=== PATIENT | female | born 1995 | race Two or more races ===

== ENCOUNTER 2024-10-23 13:19 | Outpatient (AMB) | payer MEDICAID, SELFPAY ==
[2024-10-23 13:30] VITALS: BP 127/87; PULSE 84; RESP 18; TEMP 36; O2SAT 98
--- NOTE | 2024-10-23 13:30 | AMB.GYNCLNOT ---
Vital Signs 10/23/24 13:30 10/23/24 13:33 Weight 109.543 kg 241 kg Weight Measurement Method Standing Scale BP 127/87 H Blood Pressure Source Automatic Cuff Blood Pressure Location Left Upper Arm Position Sitting Respiration 18 Pulse 84 Pulse Source Monitor Temp 96.8 F Temp Source Oral Pulse Oximetry (%) 98 Oxygen Delivery Method Room Air Allergies/Home Meds Allergies & Medications Allergies No Known Allergies Allergy (Verified 10/23/24 13:30) Medication Reconciliation PNV #[id number] 650 mg-50 unit(AM)/30 mg-1 mg tablet,capsule 1 ea PO QDAY 02/26/24 [History Confirmed 10/23/24] Intake Visit Data Collection New Patient or Established: Established Patient (seen at [facility] within 3 years) Reason for Visit:: Seen by Clinical Staff ONLY (RN/MA): No Bankruptcy Paralegal Required: No Do You Feel Safe at Home: Yes Authorities Contacted: N/A PCP or OBGYN visit in last 3 months: Yes Hx Now: No Are you currently on any form of Control: No Pain Present Currently: No Pain Scale Used: Wells-Nolan/Numerical Pain scale:: 0 Smoking Status Smoking Status: Never smoker 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 1. Little interest or pleasure in doing things: not at all 2. Feeling down, depressed, or hopeless: not at all Total score: 0 PHQ-9 3. Trouble falling or staying asleep, or sleeping too much: Not at all 4. Feeling tired or having little energy: Not at all 5. Poor appetite or overeating: Not at all 6. Feeling bad about yourself - or that you are a failure or have let yourself or your family down: Not at all 7. Trouble concentrating on things, such as reading the newspaper or watching television: Not at all 8. Moving or speaking so slowly that other people could have noticed? - Or the opposite - being so fidgety or restless that you have been moving around a lot more than usual: not at all 9. Thoughts that you would be better off or of hurting yourself in some way: Not at all Total score: 0 If you checked off any problems, how difficult have these problems made it for you to do your work, take care of things at home, or get along with other people?: not difficult at all Source: Developed by Drs. Shaggy Tidwell, Lucia Neville, Cayetano Montalvo and colleagues, with an educational rené from [employer]. Depression screen completed yes Social History Living Situation History Lives With: Family Housing: House Tobacco History Smoking Status: Never smoker Second Hand Smoke Exposure: No Alcohol History Alcohol Intake: Former Alcohol Intake Frequency: holidays/special occasions only Domestic Abuse History Do You Feel Safe at Home: Yes Past Medical History Past Medical History Have you ever been diagnosed with any of the following: Neurological Problems Seizures: No Cardiology Problems Congestive Heart Failure: No Respiratory Problems Chronic Obstructive Pulmonary Disease (COPD): No Asthma: No Genital/Urinary Problems Renal Disease: No Endocrine Problems Diabetes Mellitus Type 1: No Diabetes Mellitus Type 2: Yes (Diabetes on father's side) Other Problems Blood Transfusions: No Anesthesia Reactions: No History of Present Illness HPI Narrative Chief Complaint visit, back pain, sharp stomach pains History of Present Illness Peace Tate presents for a visit following a repeat delivery on March 16, 2024. Her chief complaints are back pain and sharp stomach pains. She reports experiencing these symptoms but does not provide specific details about their onset, duration, or severity. The patient has not been monitoring her diabetes as prescribed. However, she has recently started taking Zepbound and reports losing nine pounds in two weeks. She has made lifestyle changes to improve her health, including reducing soda intake, increasing water consumption, walking regularly, and avoiding bread and tortillas. Ms. Tate expresses frustration with her weight and mentions social avoidance, indicating that her current health status is impacting her daily functioning and social interactions. She requests an ultrasound to investigate her symptoms, demonstrating concern about her recovery. Medical History - Diabetes mellitus Surgical History - Repeat delivery on 03-16-2024 Medications and Supplements - Zepbound - Started recently. Lost nine pounds in two weeks. Social History - Diet: Reduced soda intake, increased water consumption, avoids bread and tortillas - Exercise: Walks regularly - Psychosocial: Expresses frustration with weight and social avoidance Review of Systems General: Positive for weight loss. Gastrointestinal: Positive for sharp stomach pains. Musculoskeletal: Positive for back pain. Psychiatric: Positive for social avoidance, frustration with weight. Pain Assessment Are you having any pain?: No Weight: 241 kg Sexual Activity Sexual activity counseling done: Yes Resumed intercourse: Yes Dyspareunia: No Change in libido: No Emergency contraception: advised Bonding With Problem identified: No Problem identified: No Referral for counseling: No Feeding Feeding method: bottle Tobacco Smoking Status: Never smoker 2hr glucose: Yes Return of menses: Yes Review of Systems Review of Systems Systems Reviewed: All systems reviewed, normal except as documented Genitourinary Genitourinary: Denies change in libido Psychiatric Psychiatric: Denies change in libido Endocrine Endocrine: Denies change in libido Exam General Limitations: no limitations General Appearance: alert, in no apparent distress, comfortable, cooperative, healthy appearing, well developed and well groomed Head Head exam: atraumatic, normocephalic and normal inspection Neck Neck exam: Present normal inspection, full ROM and trachea midline Chest Chest inspection: Present normal inspection and symmetric chest wall rise Abdominal Abdominal exam: Present soft and normal bowel sounds Psych Psychiatric exam: Present normal affect and normal mood Skin Skin exam: Present warm, dry, intact and normal color Assessment & Plan Diagnosis / Problem List (1) Routine Follow-Up: (2) depression: Status: Acute Plan Peace Tate presents for a visit status post-repeat delivery on 03-16-2024, reporting back pain and sharp stomach pains. abdominal pain Assessment: Patient reports back pain and sharp stomach pains following repeat delivery on 03-16-2024. Given the timing and nature of symptoms, there is concern for potential complications such as hernia or blood clot. Further imaging is necessary for accurate diagnosis and appropriate management. Plan: - Order CT scan to evaluate for hernia or blood clot - Order X-ray - Schedule imaging at [facility] pending insurance authorization Diabetes mellitus Assessment: Patient has not been monitoring her diabetes. She has recently started Zepbound and reports a 9-pound weight loss in two weeks. Patient has made lifestyle modifications including reduced soda intake, increased water consumption, regular walking, and avoiding bread and tortillas. Plan: - Continue Zepbound (dose and frequency not specified) - Encourage continued lifestyle modifications: - Maintain reduced soda intake and increased water consumption - Continue regular walking - Maintain dietary changes (avoiding bread and tortillas) - Reinforce importance of blood glucose monitoring weight management Assessment: Patient expresses frustration with weight and reports social avoidance. She has lost 9 pounds in two weeks since starting Zepbound and implementing lifestyle changes. Plan: - Continue current weight management strategies - Provide supportive counseling regarding weight-related concerns and social avoidance leave extension Assessment: Patient requires extended leave, likely due to ongoing recovery and medical concerns. Plan: - Extend leave until December 08 Office Procedures OB Clinic LOC & Office Proc's Nursing/Assessment Patient Status: Established Patient OB Clinic Nursing Assessment: BP Monitoring, Medication Reconciliation, Update PMH in EMR and Vital Signs OB Clinic Coordination of Care: Complex Care and Chronic Disease 1-5, Consent,records obtained, informed consent, Education Simp Pt/Fam and Staff clarify orders Established Patient Charge Established Patient Point Assignment: 100 Established Patient Point Charge: EP Level 3 (80-115)
== END 2024-10-23 13:51 | disposition home or self-care (01) ==
LOC: HODSOBC 13:19
PROVIDERS: Supervising Provider Obstetrics & Gynecology; Visit Provider Obstetrics & Gynecology
DX: Z39.2 Encounter for routine postpartum follow-up (principal); O99.345 Other mental disorders complicating the puerperium; F53.0 Postpartum depression; E11.9 Type 2 diabetes mellitus without complications; O90.89 Other complications of the puerperium, not elsewhere classified; M54.9 Dorsalgia, unspecified; R10.9 Unspecified abdominal pain; Z91.199 Patient's noncompliance with other medical treatment and regimen due to unspecified reason
CPT/HCPCS: 99213; G0463

== ENCOUNTER 2025-01-23 11:08 | Outpatient (AMB) | payer MEDICAID, SELFPAY ==
[2025-01-23 11:22] VITALS: BP 117/87; PULSE 85; RESP 16; TEMP 36.2; O2SAT 98; BMI 42.0
--- NOTE | 2025-01-23 11:24 | AMB.GYNCLNOT ---
Vital Signs 01/23/25 11:22 01/23/25 11:26 Height 1.55 m Height Method Stated Weight 100.868 kg Weight Measurement Method Standing Scale BMI 42.0 BP 117/87 H 117/87 H Blood Pressure Source Automatic Cuff Blood Pressure Location Left Upper Arm Position Sitting Respiration 16 16 Pulse 85 85 Pulse Source Monitor Temp 97.1 F 97.1 F Temp Source Oral Pulse Oximetry (%) 98 98 Oxygen Delivery Method Room Air Allergies/Home Meds Allergies & Medications Allergies No Known Allergies Allergy (Verified 01/23/25 11:24) Medication Reconciliation PNV [id number] 7 650 mg-50 unit(AM)/30 mg-1 mg tablet,capsule 1 ea PO QDAY 02/26/24 [History Confirmed 01/23/25] sulfamethoxazole 800 mg-trimethoprim 160 mg tablet (Bactrim DS) 1 tab PO BID 7 days #14 tabs 01/23/25 [Rx] Intake Visit Data Collection New Patient or Established: Established Patient (seen at [facility] within 3 years) Reason for Visit:: CT RESULTS/ POSSIBLE UTI Seen by Clinical Staff ONLY (RN/MA): No Tavern Keeper Required: No Do You Feel Safe at Home: Yes Authorities Contacted: N/A PCP or OBGYN visit in last 3 months: Yes Hx Now: No Are you currently on any form of Control: No Last menstrual period: 01/15/25 Pain Present Currently: No Pain Scale Used: Wells-Nolan/Numerical Pain scale:: 0 Smoking Status Smoking Status: Never smoker 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 Menstrual regularity: irregular Flow: normal Monthly: No How many days does period last: 5 Age at menarche: 12 Currently sexually active: No If not currently sexually active, have you ever been sexually active: Yes MANAGER SUPPLIER: Past Medical History Past Medical History: No Hx Blood Disorders, No Hx Renal Disease, No Hx Diabetes Mellitus Type 1 and Yes Hx Diabetes Mellitus Type 2 (Diabetes on father's side) Questionnaires Covid-19 Vaccine Questionnaire Has patient been vacinated for Covid-19 Have you been vacinated for Covid-19: Yes PHQ-9 PHQ-2 Over the last 2 weeks, how often have you been bothered by any of the following problems? 1. Little interest or pleasure in doing things: not at all 2. Feeling down, depressed, or hopeless: not at all Total score: 0 PHQ-9 3. Trouble falling or staying asleep, or sleeping too much: Not at all 4. Feeling tired or having little energy: Not at all 5. Poor appetite or overeating: Not at all 6. Feeling bad about yourself - or that you are a failure or have let yourself or your family down: Not at all 7. Trouble concentrating on things, such as reading the newspaper or watching television: Not at all 8. Moving or speaking so slowly that other people could have noticed? - Or the opposite - being so fidgety or restless that you have been moving around a lot more than usual: not at all 9. Thoughts that you would be better off or of hurting yourself in some way: Not at all Total score: 0 Source: Developed by Drs. Shaggy Tidwell, Lucia Neville, Cayetano Montalvo and colleagues, with an educational rené from [employer]. Depression screen completed yes Social History Living Situation History Lives With: Family Housing: House Tobacco History Smoking Status: Never smoker Second Hand Smoke Exposure: No Alcohol History Alcohol Intake: Former Alcohol Intake Frequency: holidays/special occasions only Domestic Abuse History Do You Feel Safe at Home: Yes History of Present Illness HPI Narrative Patient reports symptoms consistent with a urinary tract infection (UTI), including frequency and urgency. She states, I could drink something and then I'm like having to go to the bathroom. The patient mentions she has been drinking water constantly and has also consumed cranberry juice in an attempt to alleviate her symptoms. She continues to have concerns about incisional pain, suspected hernia, and depression from her previous visit. A CT scan of the abdomen was ordered to rule out a hernia, but the results are still pending review. She is a female patient who underwent a on April 03, 2024, and is currently on disability related to her condition. She has requested an extension of her disability status, which can be extended up to one year from her date. Her obstetric history includes one , delivered via section on March 16, 2020. She has a medical history of depression. The patient drinks water and cranberry juice regularly. Exam General General Appearance: alert, in no apparent distress and healthy appearing Head Head exam: atraumatic Neck Neck exam: Present normal inspection and trachea midline Chest Chest inspection: Present normal inspection and symmetric chest wall rise External exam: Present normal external exam; Absent tenderness Neuro Neurological exam: Present oriented X3 Psych Psychiatric exam: Present normal affect and normal mood Office Procedures OB Clinic LOC & Office Proc's Nursing/Assessment Patient Status: Established Patient OB Clinic Nursing Assessment: Medication Reconciliation, Update PMH in EMR and Vital Signs OB Clinic Coordination of Care: Complex Care and Chronic Disease 1-5, Consent,records obtained, informed consent, Education Simp Pt/Fam, Lab and Imaging orders, Results/Orders obtained and Staff clarify orders Miscellaneous Interventions: Blood/Urine Collection Established Patient Charge Established Patient Point Assignment: 135 Established Patient Point Charge: EP Level 4 (120-155) Assessment & Plan Diagnosis / Problem List (1) Wound dehiscence, , delivered with complication: Status: Acute (2) depression: Status: Acute (3) delivery, delivered, current hospitalization: Status: Acute Plan Urinary Tract Infection (UTI): - Patient presents with symptoms consistent with UTI: frequency and urgency. - Patient reports increased fluid intake, including water and cranberry juice. - Prescribe short course of antibiotics for UTI treatment. - Obtain urine culture after completion of antibiotic course to ensure infection clearance. - Prescription to be sent to [facility] pharmacy. Post- Section Follow-up: - Patient is approximately 7 months post- section (performed on 04/03/2024). - Complaints include incisional pain and suspected hernia. - CT scan of the abdomen ordered at previous visit to rule out hernia, results pending. - Continue to follow up on pending CT scan results of the abdomen. - Reassess incisional pain and potential hernia once CT results are available. Depression: - Patient has reported depression. - No further details or current status provided in this encounter. Disability Extension: - Patient has requested a disability extension. - Complete disability extension forms to extend coverage until April 03, 2025 (one year post- section). - Provide patient with a printout of the completed disability extension forms.
[2025-01-23 11:26] VITALS: BP 117/87; PULSE 85; RESP 16; TEMP 36.2; O2SAT 98
== END 2025-01-23 11:56 | disposition home or self-care (01) ==
LOC: HODSOBC 11:08
PROVIDERS: PCP Obstetrics & Gynecology; Referring Provider Obstetrics & Gynecology; Supervising Provider Obstetrics & Gynecology; Visit Provider Obstetrics & Gynecology
DX: O90.0 Disruption of cesarean delivery wound (principal); O99.345 Other mental disorders complicating the puerperium; F53.0 Postpartum depression; N39.0 Urinary tract infection, site not specified; Z02.71 Encounter for disability determination
CPT/HCPCS: 99214; G0463